=== PATIENT | female | born 1945 | race Two or more races ===

== ENCOUNTER 2021-01-08 10:18 | Emergency (ER) | payer MEDICARE ==
[~2021-01-08] VITALS: Ht 160 cm; Wt 59.0 kg
[2021-01-08 11:46] VITALS: BP 130/47
== END 2021-01-08 12:00 | disposition home or self-care (01) ==
LOC: ER 10:18
DX: S76.912A Strain of unspecified muscles, fascia and tendons at thigh level, left thigh, initial encounter (principal); R51.9 Headache, unspecified; W01.0XXA Fall on same level from slipping, tripping and stumbling without subsequent striking against object, initial encounter; Y93.89 Activity, other specified; Y92.89 Other specified places as the place of occurrence of the external cause; Y99.8 Other external cause status
CPT/HCPCS: 70450; 71250; 72192